=== PATIENT | female | born 1950 | race Caucasian/White ===

== ENCOUNTER 2018-03-25 21:20 | Emergency (ER) | payer MEDICARE ==
[2018-03-25 21:43] VITALS: BP 134/69; PULSE 74; RESP 20; TEMP 98.4
--- NOTE | 2018-03-25 22:22 | ED ---
Skin/Abscess/FB HPI - General Chief complaint: Skin/Abscess/Foreign Body Stated complaint: leg discoloration Time Seen by Provider: 03/25/18 21:58 Source: patient, family, RN notes reviewed Mode of arrival: ambulatory Limitations: no limitations - History of Present Illness Initial comments: This is a 67-year-old female who presents to the emergency department with chief complaint of bilateral leg discoloration. Patient is accompanied by her daughter who contributes to history. Patient states that prior to arrival she was sitting out on her front porch. She states that her legs were dangling. She says that she was sitting there for approximately 20 minutes. She states that her bilateral lower extremities became purple in color and swollen. She states that since being in the emergency department and having her legs up that the color and swelling has gone down. She denies fevers or chills, chest pain or shortness of breath, abdominal pain, nausea or vomiting. Denies injuries, trauma or recent falls. - Related Data Allergies Allergy/AdvReac Type Severity Reaction Status Date / Time No Known Allergies Allergy Verified 03/25/18 21:43 Review of Systems ROS Statement: Those systems with pertinent positive or pertinent negative responses have been documented in the HPI. ROS Other: All systems not noted in ROS Statement are negative. Past Medical History Past Medical History: Hyperlipidemia, Hypertension Additional Past Medical History / Comment(s): leukemia, lymphoma History of Any Multi-Drug Resistant Organisms: None Reported Past Surgical History: Cholecystectomy Past Psychological History: Depression Smoking Status: Current every day smoker Past Alcohol Use History: None Reported Past Drug Use History: None Reported General Exam - General Exam Comments Initial Comments: General: Awake and alert, well-developed; in no apparent distress. HEENT: Head atraumatic, normocephalic. Pupils are equal, round and reactive to light. Extraocular movements intact. Oropharynx moist without erythema or exudate. Neck: Supple. Normal ROM. Cardiovascular: Regular rate and rhythm. No murmurs, rubs or gallops. Chest symmetrical. Pedal pulses are 2+ equal and palpable bilaterally. Respiratory: Lungs clear to auscultation bilaterally. No wheezes, rales or rhonchi. Normal respiratory effort with no use of accessory muscles. Musculoskeletal: Normal ROM, no tenderness bilateral upper and lower extremities. Ambulating normally. Skin: [place], warm and dry. Mild erythema and chronic scaly plaques bilateral lower extremities. No warmth or swelling noted. No tenderness on palpation. Neurological: Alert and oriented x3. CN II-XII grossly intact. Speech is fluent and answers are appropriate. No focal neuro deficits. Psychiatric: Normal mood and affect. No overt signs of depression or anxiety noted. Limitations: no limitations Course Vital Signs 03/25/18 21:36 Temperature 98.4 F Pulse Rate 74 Respiratory 20 Rate Blood Pressure 134/69 O2 Sat by Pulse 95 Oximetry Medical Decision Making - Medical Decision Making This is a 67-year-old female who presents to the emergency department with chief complaint of bilateral leg discoloration. Patient states that while dangling her legs earlier today they became purple and swollen. She states that since being in the emergency department and having her legs up, the swelling and discoloration has gone away. On physical examination, there is a mild erythema and chronic scaly plaques to bilateral lower extremities. No warmth or tenderness on palpation. She is neurovascularly intact. No signs of infection. PERC score is 0. Vital signs are stable and patient is in no acute distress. She will be discharged home at this time. All questions answered. Disposition Clinical Impression: Venous (peripheral) insufficiency Disposition: HOME SELF-CARE Condition: Good Instructions: Stasis Dermatitis (ED), Leg Edema (ED) Additional Instructions: Please follow up with primary care provider within 1-2 days. Return to emergency department if symptoms should worsen or any concerns arise. Is patient prescribed a controlled substance at d/c from ED?: No Referrals: Isreal Chavez MD [Primary Care Provider] - 1-2 days Time of Disposition: 22:23
== END 2018-03-25 22:39 | disposition home or self-care (01) ==
LOC: EC 21:20
DX: I87.2 Venous insufficiency (chronic) (peripheral) (principal); F17.200 Nicotine dependence, unspecified, uncomplicated
CPT/HCPCS: 99283

== ENCOUNTER → 2022-03-15 | Outpatient (CLI) | payer MEDICARE, OTHER ==
--- NOTE | 2022-03-15 11:59 | XR ---
EXAM TYPE: LUMBAR SPINE X RAY SERIES COMPARISON: NONE HISTORY: Pain TECHNIQUE: 4 views are submitted. FINDINGS: There is a severe scoliotic curvature of the spine with severe degenerative disc disease at all level s. Facet arthropathy and foraminal encroachment suspected at all levels. Vascular calcifications inci dentally noted. SI joints symmetric. Calcifications in the pelvis likely vascular. IMPRESSION: 1. Severe scoliosis with multilevel severe degenerative disc disease, facet arthropathy, and suspecte d multilevel foraminal encroachment.
== END | disposition home or self-care (01) ==
LOC: RADXRMAIN 11:06
PROVIDERS: ATTEND Psychiatry & Neurology Neurology
DX: M51.36 Other intervertebral disc degeneration, lumbar region (principal); M47.816 Spondylosis without myelopathy or radiculopathy, lumbar region; M41.86 Other forms of scoliosis, lumbar region
CPT/HCPCS: 72110

== ENCOUNTER 2022-04-13 15:50 | Emergency (ER) | payer MEDICARE, OTHER ==
--- NOTE | 2022-04-13 16:30 | ED ---
Fall HPI - General Chief Complaint: Fall Stated Complaint: Fall Time Seen by Provider: 04/13/22 16:02 Source: EMS Mode of arrival: EMS - History of Present Illness Initial Comments: Patient is a 71-year-old female presenting with chief complaint of head injury. Patient had an unwitnessed fall at home, patient hit her head and has an abrasion to the forehead. When asked how she fell patient states that her left leg at times gives out, and today this caused her to fall. She is complaining of left leg and hip pain. Family at bedside states that she has been falling more frequently. They also state that she has had some increased confusion. Patient denies any chest pain, shortness of breath, neck pain, vision or hearing changes, numbness, tingling, nausea, vomiting, abdominal pain, dysuria, hematuria, urgency, frequency, fever, chills. - Related Data Home Medications Medication Instructions Recorded Confirmed Atenolol [Tenormin] 25 mg PO HS 04/13/22 04/13/22 Atenolol [Tenormin] 50 mg PO DAILY 04/13/22 04/13/22 Calcium Acetate [Phoslo] 667 mg PO DAILY 04/13/22 04/13/22 Cyclobenzaprine [Flexeril] 5 mg PO BID PRN 04/13/22 04/13/22 Diclofenac Sodium Gel [Voltaren 2 gm TOPICAL TID PRN 04/13/22 04/13/22 Gel] Gabapentin 300 mg PO TID 04/13/22 04/13/22 Levothyroxine Sodium 88 mcg PO DAILY 04/13/22 04/13/22 Lovastatin [Mevacor] 40 mg PO HS 04/13/22 04/13/22 Naloxone HCl [Narcan] 4 mg NASAL ONCE PRN 04/13/22 04/13/22 buPROPion XL [Wellbutrin XL] 300 mg PO DAILY 04/13/22 04/13/22 oxyCODONE-APAP 5-325MG [Percocet 1 tab PO BID PRN 04/13/22 04/13/22 5-325 mg] Previous Rx's Medication Instructions Recorded Sulfamethox-Tmp 800-160Mg [Bactrim 1 tab PO Q12HR 7 Days #14 tab 04/13/22 DS 800-160 mg] Allergies Allergy/AdvReac Type Severity Reaction Status Date / Time No Known Allergies Allergy Verified 04/13/22 19:10 Review of Systems ROS Statement: Those systems with pertinent positive or pertinent negative responses have been documented in the HPI. ROS Other: All systems not noted in ROS Statement are negative. Past Medical History Past Medical History: Hyperlipidemia, Hypertension Additional Past Medical History / Comment(s): leukemia, lymphoma History of Any Multi-Drug Resistant Organisms: None Reported Past Surgical History: Cholecystectomy Past Psychological History: Depression Smoking Status: Current every day smoker Past Alcohol Use History: None Reported Past Drug Use History: None Reported General Exam Limitations: no limitations General appearance: alert, in no apparent distress Head exam: Present: atraumatic, normocephalic, normal inspection Eye exam: Present: normal appearance, EOMI. Absent: scleral icterus Neck exam: Present: normal inspection. Absent: tenderness Respiratory exam: Present: normal lung sounds bilaterally. Absent: respiratory distress, wheezes, rales, rhonchi, stridor Cardiovascular Exam: Present: regular rate, normal rhythm, normal heart sounds. Absent: systolic murmur, diastolic murmur, rubs, gallop, clicks Left Hip exam: Present: normal inspection, tenderness. Absent: full ROM (Secondary to pain), swelling Knee exam: Present: normal inspection, tenderness. Absent: full ROM (Echo narrated pain), swelling Lower Leg exam: Present: normal inspection, tenderness. Absent: swelling Neurovascular tendon exam: Present: no vascular compromise. Absent: sensory deficit Neurological exam: Present: alert, oriented X3, CN II-XII intact Psychiatric exam: Present: normal affect, normal mood Skin exam: Present: warm, dry, intact, normal color. Absent: rash Course Vital Signs 04/13/22 04/13/22 04/13/22 15:55 16:07 19:06 Temperature 98.7 F Pulse Rate 73 69 Respiratory 20 18 Rate Blood Pressure 121/65 139/69 O2 Sat by Pulse 96 99 Oximetry 04/13/22 04/13/22 21:25 23:00 Temperature 97.6 F Pulse Rate 67 66 Respiratory 18 18 Rate Blood Pressure 134/69 129/75 O2 Sat by Pulse 95 96 Oximetry Medical Decision Making - Medical Decision Making Patient is a 71-year-old female presenting with chief complaint of fall with head injury. Patient is complaining of left hip and leg pain. On examination there are no focal neurological deficits. There is tenderness to the hip and left leg. X-ray of the hip shows deformity of the left subcapital femoral neck, CT obtained shows no fracture. Remaining x-rays of the lower extremity are negative. CT of the brain and cervical spine without contrast shows no acute intracranial process or evidence of cervical spine fracture. It does show chronic changes of the white matter. Chest x-ray obtained shows no acute abnormality. Patient does have some leukocytosis. BUN of 20 is likely due to dehydration. There is mild transaminitis. UA shows UTI. Patient is treated with Bactrim DS twice a day for 7 days. He is given her first dose of Bactrim here in the ER. Patient lives with family and is able to safely return home today. Instructed to follow-up with her PCP in one to 2 days. Report back to ER with any new or worsening symptoms. I provided the family with return parameters and answered all questions. Patient and family conveyed verbal understanding and agreed to the plan. I discussed this case with my attending Dr. Beverly. - Lab Data Result diagrams: 04/13/22 18:49 04/13/22 18:49 Lab Results 04/13/22 04/13/22 04/13/22 Range/Units 18:49 18:49 18:49 WBC 15.0 H (3.8-10.6) k/uL RBC 4.27 (3.80-5.40) m/uL Hgb 13.0 (11.4-16.0) gm/dL Hct 43.1 (34.0-46.0) % MCV 101.0 H (80.0-100.0) fL MCH 30.5 (25.0-35.0) pg MCHC 30.2 L (31.0-37.0) g/dL RDW 13.0 (11.5-15.5) % Plt Count 320 (150-450) k/uL MPV 7.4 Neutrophils % 70 % Lymphocytes % 20 % Monocytes % 6 % Eosinophils % 2 % Basophils % 1 % Neutrophils # 10.6 H (1.3-7.7) k/uL Lymphocytes # 2.9 (1.0-4.8) k/uL Monocytes # 0.9 (0-1.0) k/uL Eosinophils # 0.3 (0-0.7) k/uL Basophils # 0.1 (0-0.2) k/uL Hypochromasia Slight Sodium 142 (137-145) mmol/L Potassium 3.9 (3.5-5.1) mmol/L Chloride 103 (98-107) mmol/L Carbon Dioxide 37 H (22-30) mmol/L Anion Gap 2 mmol/L BUN 20 H (7-17) mg/dL Creatinine 1.01 (0.52-1.04) mg/dL Est GFR (CKD-EPI)AfAm 66 (>60 ml/min/1.73 sqM) Est GFR (CKD-EPI)NonAf 57 (>60 ml/min/1.73 sqM) Glucose 103 H (74-99) mg/dL Calcium 9.2 (8.4-10.2) mg/dL Total Bilirubin 0.3 (0.2-1.3) mg/dL AST 53 H (14-36) U/L ALT 37 H (4-34) U/L Alkaline Phosphatase 71 (38-126) U/L Troponin I (0.000-0.034) ng/mL Total Protein 6.1 L (6.3-8.2) g/dL Albumin 3.3 L (3.5-5.0) g/dL Urine Color Yellow Urine Appearance Cloudy H (Clear) Urine pH 6.0 (5.0-8.0) Ur Specific [place] 1.024 (1.001-1.035) Urine Protein 2+ H (Negative) Urine Glucose (UA) Negative (Negative) Urine Ketones Negative (Negative) Urine Blood Moderate H (Negative) Urine Nitrite Positive H (Negative) Urine Bilirubin Negative (Negative) Urine Urobilinogen <2.0 (<2.0) mg/dL Ur Leukocyte Esterase Large H (Negative) Urine RBC 4 (0-5) /hpf Urine WBC 77 H (0-5) /hpf Urine WBC Clumps Few H (None) /hpf Ur Squamous Epith Cells 9 H (0-4) /hpf Urine Bacteria Many H (None) /hpf Hyaline Casts 3 H (0-2) /lpf Urine Mucus Rare H (None) /hpf 04/13/ Range/Units 18:49 WBC (3.8-10.6) k/uL RBC (3.80-5.40) m/uL Hgb (11.4-16.0) gm/dL Hct (34.0-46.0) % MCV (80.0-100.0) fL MCH (25.0-35.0) pg MCHC (31.0-37.0) g/dL RDW (11.5-15.5) % Plt Count (150-450) k/uL MPV Neutrophils % % Lymphocytes % % Monocytes % % Eosinophils % % Basophils % % Neutrophils # (1.3-7.7) k/uL Lymphocytes # (1.0-4.8) k/uL Monocytes # (0-1.0) k/uL Eosinophils # (0-0.7) k/uL Basophils # (0-0.2) k/uL Hypochromasia Sodium (137-145) mmol/L Potassium (3.5-5.1) mmol/L Chloride (98-107) mmol/L Carbon Dioxide (22-30) mmol/L Anion Gap mmol/L BUN (7-17) mg/dL Creatinine (0.52-1.04) mg/dL Est GFR (CKD-EPI)AfAm (>60 ml/min/1.73 sqM) Est GFR (CKD-EPI)NonAf (>60 ml/min/1.73 sqM) Glucose (74-99) mg/dL Calcium (8.4-10.2) mg/dL Total Bilirubin (0.2-1.3) mg/dL AST (14-36) U/L ALT (4-34) U/L Alkaline Phosphatase (38-126) U/L Troponin I <0.012 (0.000-0.034) ng/mL Total Protein (6.3-8.2) g/dL Albumin (3.5-5.0) g/dL Urine Color Urine Appearance (Clear) Urine pH (5.0-8.0) Ur Specific [place] (1.001-1.035) Urine Protein (Negative) Urine Glucose (UA) (Negative) Urine Ketones (Negative) Urine Blood (Negative) Urine Nitrite (Negative) Urine Bilirubin (Negative) Urine Urobilinogen (<2.0) mg/dL Ur Leukocyte Esterase (Negative) Urine RBC (0-5) /hpf Urine WBC (0-5) /hpf Urine WBC Clumps (None) /hpf Ur Squamous Epith Cells (0-4) /hpf Urine Bacteria (None) /hpf Hyaline Casts (0-2) /lpf Urine Mucus (None) /hpf Disposition Clinical Impression: UTI (urinary tract infection), Fall Disposition: HOME SELF-CARE Condition: Fair Instructions (If sedation given, give patient instructions): Fall Prevention for Older Adults (ED), Urinary Tract Infection in Older Adults (ED) Additional Instructions: Follow-up with your PCP in one to 2 days. Report back to ER with any new or worsening symptoms. Take medication as prescribed. Prescriptions: Sulfamethox-Tmp 800-160Mg [Bactrim DS 800-160 mg] 1 tab PO Q12HR 7 Days #14 tab Is patient prescribed a controlled substance at d/c from ED?: No Referrals: Isreal Chavez MD [Primary Care Provider] - 1-2 days Time of Disposition: 22:53
--- NOTE | 2022-04-13 17:29 | CT ---
EXAMINATION TYPE: CT brain cspine wo con CT DLP: 1392.9 mGycm, Automated exposure control for dose reduction was used. DATE OF EXAM: 04/13/2022 5:05 PM COMPARISON: None. CLINICAL INDICATION:Female, 71 years old with history of fall; TECHNIQUE: Brain: Multiple axial CT images of the brain were obtained without IV contrast. Cspine: Axial CT images from the skull base to the inferior aspect of T2 we obtained without intraven ous contrast. Coronal and sagittal reformatted images were also reviewed. FINDINGS: Brain: Extra-axial spaces: No abnormal extra-axial fluid collections. Ventricular system: Dilatation in proportion to cerebral atrophy. Cerebral parenchyma: There is mineralization of the basal ganglia bilaterally. There is diffuse confl uent white matter changes most pronounced in the cerebral hemispheres. No acute intraparenchymal hemo rrhage or mass effect. The watts-white junction is well differentiated. Cerebellum: Unremarkable. Mass effect: No evidence of midline shift. Intracranial vasculature: Atherosclerotic calcifications of the intracranial vessels. Soft tissues: Normal. Calvarium/osseous structures: No depressed skull fracture. Paranasal sinuses and mastoid air cells: Clear. Visualized orbits: Right aphakia Cervical spine: Fracture: None. Osseous structures: Multilevel degenerative disc disease changes with endplate spurring and disc oste ophyte complex's. Vertebral alignment: Within normal limits. Spinal canal/Neural Foramina: Disc osteophyte complexes with narrowing C3 C4 6, C4-C5 C5-C6 and C6-C7 . This is worse at C4-C5. With at least moderate spinal canal stenosis. Facet joint uncovertebral tucker nt arthropathy scattered throughout the cervical spine with varying degrees of neural foraminal steno sis. Neck soft tissues: Prevertebral soft tissues are within normal limits. Other: The airway is patent. The lung apices are clear. IMPRESSION: 1. No acute intracranial process. 2. Diffuse confluent white matter changes most pronounced posteriorly. No evidence of watts-white mat ter differentiation to suggest acute CVA. No acute intracranial hemorrhage. White matter findings aaron ear more chronic given dilation of the ventricular system. Comparisons with priors would be of benefi t for chronicity. Findings could be further evaluated with MRI of brain if clinically warranted. 3. No evidence of cervical spine fracture. 4. Moderate multilevel degenerative disc disease.
--- NOTE | 2022-04-13 17:31 | XR ---
EXAMINATION TYPE: XR tibia fibula LT, XR knee complete LT DATE OF EXAM: 04/13/2022 5:15 PM INDICATION: Patient age:Female; 71 years old; Reason for study: fall; COMPARISON: None TECHNIQUE: The left tibia/fibula was examined in AP and lateral projections. The left knee was exami michael in frontal, lateral and oblique views. FINDINGS: No evidence of any acute osseous pathology, joint dislocation, or soft tissue swelling is n oted. Atherosclerosis of the arterial vasculature. There is calcaneal Achilles enthesophyte along wit h calcaneal plantar spurring. Tricompartmental osteoarthritic changes of the superior with tibial plafond osteophytes as well as pa tella osteophytes. Enthesophyte of the superior patella and tibial tubercle are present. IMPRESSION: 1. No evidence of acute fracture. 2. Mild left knee tricompartmental osteoarthrosis changes.
--- NOTE | 2022-04-13 17:34 | XR ---
EXAMINATION TYPE: XR Hip LT and AP Pelvis DATE OF EXAM: 04/13/2022 5:15 PM INDICATION: Patient age:Female; 71 years old; Reason for study: fall; COMPARISON: None. TECHNIQUE: The left hip was examined in the frontal and lateral projections and a AP pelvis. FINDINGS: There is end-stage degenerative changes of the left hip with [id number] articulation and subchondral cystic changes and sclerosis. There is deformity of the subcapital portion of the left hi p femoral neck. There is degeneration changes of the lower spine. Solid phlebolith are present. IMPRESSION: Deformity of the left subcapital femoral neck, consider CT pelvis left hip to rule out underlying fra cture. This is superimposed on severe end-stage degeneration changes of the left hip.
[2022-04-13 19:01] LABS: Basophils # (A) 0.1 k/uL (0-0.2); Basophils % (A) 1 %; Eosinophils # (A) 0.3 k/uL (0-0.7); Eosinophils % (A) 2 %; HCT 43.1 % (34.0-46.0); Hypochromasia Slight; Lymphocytes # (A) 2.9 k/uL (1.0-4.8); Lymphocytes % (A) 20 %; MCH 30.5 pg (25.0-35.0); MCHC 30.2 g/dL (31.0-37.0); Mean Platelet Volume 7.4; Monocytes # (A) 0.9 k/uL (0-1.0); Monocytes % (A) 6 %; Neutrophils # (A) 10.6 k/uL (1.3-7.7); Neutrophils % (A) 70 %; Platelet Count 320 k/uL (150-450); RBC 4.27 m/uL (3.80-5.40)
[2022-04-13 19:06] LABS: Albumin 3.3 g/dL (3.5-5.0); Calcium 9.2 mg/dL (8.4-10.2); Potassium 3.9 mmol/L (3.5-5.1); Total Bilirubin 0.3 mg/dL (0.2-1.3); Total Protein 6.1 g/dL (6.3-8.2)
[2022-04-13 19:12] VITALS: RESP 18
[2022-04-13] MEDS ORDERED: SODIUM CHLORIDE 0.9% 500 ML 500 ML IV ONE (19:30)
[2022-04-13] MEDS ORDERED: RX INFO: IV CONTRAST WAS GIVEN 1 EACH MISC MISCELLANE PRN (19:37)
[2022-04-13] MEDS ORDERED: SODIUM CHLORIDE 0.9% 1,000 ML IV ONE (19:38)
--- NOTE | 2022-04-13 20:16 | XR ---
EXAMINATION TYPE: XR chest 2V DATE OF EXAM: 04/13/2022 7:38 PM COMPARISON: Chest radiographs from 08/17/2019. TECHNIQUE: XR chest 2V Frontal and lateral views of the chest. CLINICAL INDICATION:Female, 71 years old with history of ams; FINDINGS: Lungs/Pleura: There is no evidence of pleural effusion, focal consolidation, or pneumothorax. Pulmonary vascularity: Unremarkable. Heart/mediastinum: Cardiomediastinal silhouette is prominent in size. Musculoskeletal: No acute osseous pathology. IMPRESSION: No acute cardiopulmonary disease/process.
[2022-04-13] MEDS ORDERED: KETOROLAC 15 MG/ML 1 ML VIAL IVP STA (20:17)
--- NOTE | 2022-04-13 20:35 | CT ---
EXAMINATION TYPE: CT hip LT wo con CT DLP: 649 mGycm, Automated exposure control for dose reduction was used. DATE OF EXAM: 04/13/2022 8:18 PM COMPARISON: Extremity radiograph same day. CLINICAL INDICATION:Female, 71 years old with history of deformity on xray, rule out fracture, pain f rom fall TECHNIQUE: Axial images were obtained of the left hip without the use of IV contrast. Additional cor onal and sagittal reformatted images and soft tissue and bone window were obtained for review. 3-D re construction was created on a separate workstation. FINDINGS: No evidence of fracture. Deformity seen on radiograph represents a combination of degeneration and la rge osteophytes of the left femoral head. There is end-stage degeneration changes of the left hip wit h subchondral cystic changes and sclerosis. There is [id number] articulation. Atherosclerosis of th e arterial vasculature. IMPRESSION: 1. No evidence of fracture. 2. End-stage left hip osteoarthrosis changes with large osteophytes correlating with radiographic fi ndings of deformity.
[2022-04-13 21:47] LABS: Appearance,Urine Cloudy (Clear); Bacteria,Urine Many /hpf; Bilirubin,Urine Negative (Negative); Blood,Urine Moderate (Negative); Color,Urine Yellow; Glucose,Urine (UA) Negative (Negative); Hyaline Casts,Urine 3 /lpf (0-2); Ketones,Urine Negative (Negative); Leukocyte Esterase,Urine Large (Negative); Mucus,Urine Rare /hpf; Nitrite,Urine Positive (Negative); Protein,Urine 2+ (Negative); RBC,Urine 4 /hpf (0-5); Specific Gravity,Urine 1.024 (1.001-1.035); Squamous Epithelial Cell,Urine 9 /hpf (0-4); Urobilinogen,Urine <2.0 mg/dL (<2.0); WBC,Urine 77 /hpf (0-5)
[2022-04-13] MEDS ORDERED: SULFAMETHOX-TMP 800-160MG 1 EACH TAB PO STA (22:47)
[2022-04-13 23:00] VITALS: BP 129/75; PULSE 66; TEMP 97.6
== END 2022-04-13 23:37 | disposition home or self-care (01) ==
LOC: EC 15:50
DX: N39.0 Urinary tract infection, site not specified (principal); M25.552 Pain in left hip; D72.829 Elevated white blood cell count, unspecified; R74.01 Elevation of levels of liver transaminase levels; I10 Essential (primary) hypertension; E78.5 Hyperlipidemia, unspecified; F32.A Depression, unspecified; F17.200 Nicotine dependence, unspecified, uncomplicated; Z79.899 Other long term (current) drug therapy
CPT/HCPCS: 36415; 93005; 80053; 84484; 85025; 81001; 87086; 87077; 87186; 73502; 73590; 73562; 71046; 72125; 70450; 73700; 99284; 96360; J1885